=== PATIENT | male | born 1965 | race American Indian/Alaskan Native ===

== ENCOUNTER 2019-12-01 02:40 | Emergency (ER) | payer MEDICAID ==
[2019-12-01] MEDS ORDERED: ONDANSETRON 4 MG/2 ML INJ IV ONE (03:15)
--- NOTE | 2019-12-01 03:15 | Emergency Department Report ---
ED N/V/D HPI - General Chief complaint: Nausea/Vomiting/Diarrhea Stated complaint: Vomiting Time Seen by Provider: 12/01/19 03:04 Source: patient, EMS Mode of arrival: Stretcher Limitations: No Limitations - History of Present Illness Initial comments: 54-year-old male, no past medical history, presents to ED with nausea and vomiting. Patient states he was awakened from sleep with nausea. Patient then began vomiting profusely. Patient states while he was vomiting he became short of breath. Patient states his symptoms have now improved. Patient thinks his symptoms were due to the barbecue ribs that he ate last night. Patient denies fever, abdominal pain, chest pain, or diarrhea. MD complaint: nausea, vomiting -: hour(s) (1) Description of Vomiting: food contents Associated Abdominal Pain: No Severity: moderate Consistency: now resolved Improves with: none Worsens with: none Context: possible food poisoning Associated Symptoms: shortness of breath. denies: chest pain, fever/chills - Related Data Previous Rx's Medication Instructions Recorded Last Taken Type Dicyclomine [Bentyl] 20 mg PO QID PRN #20 tablet 12/01/19 Unknown Rx Famotidine [Pepcid] 20 mg PO BID #30 tablet 12/01/19 Unknown Rx Ondansetron [Zofran Odt] 4 mg PO Q8HR PRN #20 tab.rapdis 12/01/19 Unknown Rx Allergies Allergy/AdvReac Type Severity Reaction Status Date / Time ampicillin Allergy Swelling Verified 12/01/19 03:43 ED Review of Systems ROS: Stated complaint: LIZZETTE Other details as noted in HPI Comment: All other systems reviewed and negative Constitutional: denies: chills, fever Respiratory: shortness of breath Cardiovascular: denies: chest pain Gastrointestinal: nausea, vomiting. denies: abdominal pain, diarrhea ED Past Medical Hx - Past Medical History Previous Medical History?: Yes Hx GERD: Yes - Surgical History Past Surgical History?: Yes Additional Surgical History: Lumbar Spinal fusion L4&5 - Social History Smoking Status: Current Every Day Smoker Substance Use Type: Alcohol - Medications Home Medications: Home Medications Medication Instructions Recorded Confirmed Last Taken Type Dicyclomine [Bentyl] 20 mg PO QID PRN #20 tablet 12/01/19 Unknown Rx Famotidine [Pepcid] 20 mg PO BID #30 tablet 12/01/19 Unknown Rx Ondansetron [Zofran Odt] 4 mg PO Q8HR PRN #20 tab.rapdis 12/01/19 Unknown Rx ED Physical Exam - General Limitations: No Limitations General appearance: alert - Head Head exam: Present: atraumatic, normocephalic - Eye Eye exam: Present: normal appearance, EOMI - ENT ENT exam: Present: mucous membranes moist - Neck Neck exam: Present: normal inspection - Respiratory Respiratory exam: Present: normal lung sounds bilaterally. Absent: respiratory distress - Cardiovascular Cardiovascular Exam: Present: regular rate, normal rhythm - GI/Abdominal GI/Abdominal exam: Present: soft. Absent: distended, tenderness - Extremities Exam Extremities exam: Present: normal inspection - Neurological Exam Neurological exam: Present: alert, oriented X3 - Psychiatric Psychiatric exam: Present: normal affect, normal mood - Skin Skin exam: Present: warm, dry, intact, normal color ED Course Vital Signs 12/01/19 12/01/19 12/01/19 02:55 03:00 03:15 Temperature Pulse Rate 99 H 107 H 93 H Respiratory 20 19 19 Rate Blood Pressure 169/92 157/89 Blood Pressure 157/89 [Left] O2 Sat by Pulse 96 96 Oximetry 12/01/19 12/01/19 12/01/19 04:00 04:45 05:00 Temperature Pulse Rate 90 89 84 Respiratory Rate Blood Pressure 159/87 161/93 159/90 Blood Pressure [Left] O2 Sat by Pulse 95 95 93 Oximetry 12/01/19 12/01/19 12/01/19 05:15 05:30 06:15 Temperature 98.2 F Pulse Rate 104 H 83 Respiratory Rate Blood Pressure 138/95 154/88 Blood Pressure [Left] O2 Sat by Pulse 95 94 Oximetry 12/01/19 12/01/19 12/01/19 06:30 06:45 07:00 Temperature Pulse Rate 79 82 75 Respiratory Rate Blood Pressure 153/86 150/85 152/78 Blood Pressure [Left] O2 Sat by Pulse 97 96 95 Oximetry ED Medical Decision Making - Lab Data Result diagrams: 12/01/19 03:41 12/01/19 03:41 - EKG Data -: EKG Interpreted by Ms EKG shows normal: sinus rhythm, axis, intervals, QRS complexes Rate: normal - EKG Data Interpretation: other (T wave inversions inferolateral leads) - Radiology Data Radiology results: report reviewed, image reviewed - Medical Decision Making 54 yo M w/ nausea and vomiting, thought to be due to the ribs that he ate last night. Labs unremarkable, except for slightly elevated lipase. Abdomen is soft, nontender. Patient denies chest pain. EKG shows T wave inversions. It is unclear if this is new or old, no past EKGs available for comparison. Troponin negative x 2. Patient feeling much better after zofran and GI cocktail. Pt feels ok for d/c home. Outpatient f/u advised. Return precautions given. - Differential Diagnosis gastritis, gastroenteritis, ACS Critical care attestation.: If time is entered above; I have spent that time in minutes in the direct care of this critically ill patient, excluding procedure time. ED Disposition Clinical Impression: Gastritis Disposition: DC-01 TO HOME OR SELFCARE Is pt being admited?: No Condition: Stable Instructions: Gastritis (ED) Prescriptions: Dicyclomine [Bentyl] 20 mg PO QID PRN #20 tablet PRN Reason: abdominal pain Famotidine [Pepcid] 20 mg PO BID #30 tablet Ondansetron [Zofran Odt] 4 mg PO Q8HR PRN #20 tab.rapdis PRN Reason: Vomiting Referrals: [facility] [Provider Group] - 3-5 Days LISA BLANCO MD [Staff Physician] - 3-5 Days
--- NOTE | 2019-12-01 03:55 | XRay Report ---
ACUTE ABDOMINAL SERIES INDICATION / CLINICAL INFORMATION: Vomiting. COMPARISON: None available. FINDINGS: Upright and supine views of the abdomen demonstrate a normal bowel gas pattern without evidence of ob struction, free air or mass effect. No abnormal calcification is seen. There are bilateral pedicle sc rews at L5 and S1. The accompanying chest radiograph demonstrates a normal heart size and clear lungs. IMPRESSION: No acute abnormality. Signer Name: Boris Oconnor MD Signed: 12/01/2019 3:51 AM Workstation Name: [id number]
[2019-12-01 05:21] LABS: Alanine Aminotransferase 23 units/L (7-56); Albumin 4.7 g/dL (3.9-5); BUN/Creatinine Ratio 14; Blood Urea Nitrogen 17 mg/dL (9-20); Calcium 9.3 mg/dL (8.4-10.2); Hemolysis Index 16
[2019-12-01 05:23] LABS: Basophils # (Auto) 0.1 K/mm3 (0.0-0.1); Basophils % (Auto) 0.8 % (0.0-1.8); Eosinophils # (Auto) 0.2 K/mm3 (0.0-0.4); Eosinophils % (Auto) 2.1 % (0.0-4.3); Hemoglobin 13.7 gm/dl (11.8-15.2); Lymphocytes # (Auto) 2.9 K/mm3 (1.2-5.4); Lymphocytes % (Auto) 33.3 % (13.4-35.0); Mean Corpuscular HGB Conc 33 % (32-34); Mean Corpuscular Volume 85 fl (84-94); Monocytes # (Auto) 0.6 K/mm3 (0.0-0.8); Monocytes % (Auto) 6.2 % (0.0-7.3); Platelet Count 311 K/mm3 (140-440); Red Blood Count 4.84 M/mm3 (3.65-5.03); Red Cell Distribution Width 14.6 % (13.2-15.2)
[2019-12-01 05:38] LABS: Bilirubin,Direct < 0.2 mg/dL (0-0.2)
[2019-12-01] MEDS ORDERED: LIDOCAINE VISCOUS 2% 15 ML ORAL LIQD PO ONE (05:48)
[2019-12-01] MEDS ORDERED: ALUM-MAG HYDROXIDE-SIMETHICONE 200-200-20MG/5ML ORAL LIQD 30 ML PO ONE (05:48)
[2019-12-01 07:17] VITALS: BP 152/78
== END 2019-12-01 08:34 | disposition home or self-care (01) ==
LOC: ED 02:40
DX: K29.70 Gastritis, unspecified, without bleeding (principal); K21.9 Gastro-esophageal reflux disease without esophagitis; F17.200 Nicotine dependence, unspecified, uncomplicated; Z98.890 Other specified postprocedural states; Z79.899 Other long term (current) drug therapy; Z88.8 Allergy status to other drugs, medicaments and biological substances
CPT/HCPCS: 36415; 74022; 80048; 80076; 83690; 84484; 85025; 93005; 96374; 99285; J2405